=== PATIENT | male | born 1980 | race Caucasian/White ===

== ENCOUNTER 2020-06-30 11:03 | Outpatient (REF) | payer OTHER, SELFPAY | END 2020-06-30 11:04 | disposition home or self-care (01) | LOC: HO.WFDLDS 11:03 | PROVIDERS: Visit Provider Internal Medicine | DX: Z20.828 Contact with and (suspected) exposure to other viral communicable diseases (principal) | CPT/HCPCS: C9803; U0003 ==

== ENCOUNTER 2021-07-12 07:33 | Outpatient (REF) | payer OTHER, SELFPAY ==
[2021-07-12 11:24] LABS: Alanine Aminotransferase 46 U/L (0-40); Albumin Level 4.4 g/dL (3.5-5.0); Alkaline Phosphatase 77 U/L (39-117); Anion Gap 8 (12-20); Aspartate Amino Transferase 23 U/L (5-37); Bilirubin Total 0.6 mg/dL (0.0-1.0); Blood Urea Nitrogen 18 mg/dL (9-16); Calcium 8.9 mg/dL (8.4-10.2); Carbon Dioxide 30 mmol/L (22-29); Chloride 106 mmol/L (96-108); Cholesterol 184 mg/dL; Estimated Glomerular Filt Rate > 60; Glucose Fasting 108 mg/dL (60-99); HDL Cholesterol 39 mg/dL; LDL Cholesterol Calculated 108 mg/dl; Potassium 4.8 mmol/L (3.3-5.1); Sodium 139 mmol/L (135-145); Total Protein 6.9 g/dL (6.5-8.0); Triglycerides 189 mg/dL
[2021-07-12 11:44] LABS: TSH reflex Free T4 0.98 uIU/mL (0.32-4.0)
== END 2021-07-12 07:34 | disposition home or self-care (01) ==
LOC: HO.WFDLDS 07:33
PROVIDERS: Visit Provider Family Medicine
DX: Z00.00 Encounter for general adult medical examination without abnormal findings (principal); Z12.5 Encounter for screening for malignant neoplasm of prostate
CPT/HCPCS: 36415; 80053; 80061; 84153; 84443

== ENCOUNTER 2021-08-14 08:25 | Outpatient (REF) | payer OTHER, SELFPAY ==
[2021-08-14 11:49] LABS: Estimated Average Glucose 105 mg/dL; Hemoglobin A1c % 5.3 %
[2021-08-14 11:54] LABS: Alanine Aminotransferase 51 U/L (0-40); Albumin Level 4.2 g/dL (3.5-5.0); Alkaline Phosphatase 86 U/L (39-117); Anion Gap 8 (12-20); Aspartate Amino Transferase 27 U/L (5-37); Bilirubin Total 0.2 mg/dL (0.0-1.0); Blood Urea Nitrogen 15 mg/dL (9-16); Calcium 9.2 mg/dL (8.4-10.2); Carbon Dioxide 30 mmol/L (22-29); Chloride 106 mmol/L (96-108); Estimated Glomerular Filt Rate > 60; Glucose Fasting 105 mg/dL (60-99); Potassium 4.2 mmol/L (3.3-5.1); Sodium 140 mmol/L (135-145); Total Protein 6.5 g/dL (6.5-8.0)
== END 2021-08-14 08:26 | disposition home or self-care (01) ==
LOC: HO.WFDLDS 08:25
PROVIDERS: Visit Provider Family Medicine
DX: Z00.00 Encounter for general adult medical examination without abnormal findings (principal); R73.01 Impaired fasting glucose; R74.01 Elevation of levels of liver transaminase levels
CPT/HCPCS: 36415; 80053; 83036

== ENCOUNTER → 2021-10-04 08:57 | Outpatient (BNVA) | payer OTHER, SELFPAY | PROVIDERS: PCP Family Medicine; Visit Provider Urology | DX: Z01.818 Encounter for other preprocedural examination (principal); F41.8 Other specified anxiety disorders | CPT/HCPCS: 99202 ==

== ENCOUNTER 2022-01-16 | Outpatient (REF) | payer OTHER, SELFPAY | END 2022-01-16 00:01 | disposition home or self-care (01) | LOC: CF | PROVIDERS: Visit Provider Urology | DX: Z30.2 Encounter for sterilization (principal); F41.8 Other specified anxiety disorders | CPT/HCPCS: 55250 ==

== ENCOUNTER 2023-09-16 07:57 | Emergency (ER) | payer OTHER, SELFPAY ==
--- NOTE | ~2023-09-16 | XR_ITS ---
EXAMINATION: XR CHEST CLINICAL INFORMATION: Cough COMPARISON: None available. TECHNIQUE: 2 views of the chest were obtained. FINDINGS: No significant abnormality is noted involving the heart, lungs, mediastinum, bony thorax or soft tissues. XR/XR chest 2V IMPRESSION: Unremarkable chest examination.
[2023-09-16 08:10] VITALS: BP 116/70; PULSE 94; RESP 18; TEMP 37.2; O2SAT 95; BMI 30.5
[2023-09-16 08:24] LABS: MANUAL DIFF FLAG NO
[2023-09-16 08:27] LABS: Basophils Absolute Auto 0.1 X10*3/uL (0.0-0.2); Basophils Percent Auto 0.8 % (0-2); Eosinophils Percent Auto 0.5 % (0-4); Hematocrit 39.5 % (42.0-52.0); Hemoglobin 14.1 g/dl (14.0-18.0); Imm Gran Abs Auto 0.01 X10*3/uL (0.00-0.03); Imm Gran Pct Auto 0.2 % (0.0-0.4); Lymphocytes Percent Auto 16.2 % (20-40); Mean Corpuscular HGB Conc 35.7 g/dl (31.0-36.0); Mean Corpuscular Hemoglobin 30.3 pg (27.0-33.0); Mean Corpuscular Volume 84.8 fL (80.0-98.0); Mean Platelet Volume 9.3 fL (9.4-12.4); Monocytes Absolute Auto 0.7 X10*3/uL (0.1-1.2); Neutrophils Absolute Auto 4.4 x10*3/uL (2.0-8.3); Neutrophils Percent Auto 71.3 % (45-73); Platelet Count 200 X10*3/uL (160-400); Red Blood Count 4.66 X10*6/uL (4.60-5.80); White Blood Count 6.2 X10*3/uL (4.8-10.8)
[2023-09-16 08:44] LABS: Alanine Aminotransferase 43 U/L (0-40); Albumin Level 4.2 g/dL (3.5-5.0); Alkaline Phosphatase 91 U/L (39-117); Anion Gap 11 (12-20); Aspartate Amino Transferase 24 U/L (5-37); Bilirubin Total 0.3 mg/dL (0.0-1.0); Blood Urea Nitrogen 14 mg/dL (9-16); Calcium 9.1 mg/dL (8.4-10.2); Carbon Dioxide 24 mmol/L (22-29); Chloride 107 mmol/L (96-108); Estimated Glomerular Filt Rate > 60; Glucose Random 111 mg/dL (60-115); Potassium 3.8 mmol/L (3.3-5.1); Sodium 138 mmol/L (135-145); Total Protein 6.6 g/dL (6.5-8.0)
[2023-09-16 09:04] LABS: Influenza A PCR POSITIVE (Negative); Influenza B PCR NEGATIVE (Negative); Resp Syncy Virus RNA Qual PCR NEGATIVE (Negative); SARS COV2 PCR INHOUSE NEGATIVE (Negative)
--- NOTE | 2023-09-16 09:06 | ED_ITS ---
HPI - General Adult General Chief complaint: Upper Respiratory Symptoms Stated complaint: Cough Body Aches Etc Time Seen by Provider: 09/16/23 09:06 Source: patient and family (patient's ) Mode of arrival: ambulatory Limitations: no limitations History of Present Illness HPI narrative: Patient is a 42 year old assigned male at with no reported medical history presenting to the emergency department today with a cough and fever. Patient states that over the last day he has had a cough a fever. Patient denies any dizziness, lightheadedness, abdominal pain, nausea, vomiting, chills, blurry vision, double vision, loss of vision, chest pain, difficulty breathing, shortness of breath, back pain, night sweats, pain with urination, increased urinary frequency, increased urinary urgency, blood in his urine or stool, syncope or a near syncopal episode, recent trauma or falls, bowel incontinence, bladder incontinence, bowel retention, bladder retention, or any other complaints at this time. Onset (ago): day(s) (1) Severity: mild Severity scale (1-10): 3 Relieving factors: none Exacerbating factors: none Associated symptoms: cough and fever/chills Treatments prior to arrival: none Related Data Home Medications Medication Instructions Recorded Confirmed ketorolac 10 mg tablet 10 mg PO TID PRN 08/24/21 pantoprazole 40 mg tablet,delayed 40 mg PO DAILY 08/24/21 release Previous Rx's Medication Instructions Recorded acetaminophen 300 mg-codeine 30 mg 1 tab PO Q8H #7 tabs 10/04/21 tablet diazepam 2 mg tablet 2 mg PO BID PRN anxiety 7 days #2 10/04/21 tabs azithromycin 250 mg tablet See Rx Instructions PO .COMPLEX #6 10/14/22 tabs meloxicam 15 mg tablet 15 mg PO DAILY #14 tabs 10/14/22 oseltamivir 75 mg capsule (Tamiflu) 75 mg PO DAILY 5 days #5 caps 09/16/23 Allergies Allergy/AdvReac Type Severity Reaction Status Date / Time No Known Allergies Allergy Verified 10/14/22 13:58 Review of Systems 2 Constitutional: Constitutional: Reports no additional constitutional complaints, Denies chills, Reports fever(s) and Denies night sweats Eyes: Eyes: Reports no additional eye complaints, Denies blurry vision, Denies change in vision, Denies diplopia, Denies eye discharge, Denies loss of vision and Denies eye pain ENT: Denies dizziness Cardiovascular: Cardiovascular: Reports no additional cardiovascular complaints, Denies chest pain, Denies lightheadedness, Denies Loss of Consciousness and Denies dyspnea Respiratory: Respiratory: Reports no additional respiratory complaints, Reports cough and Denies dyspnea Gastrointestinal: Gastrointestinal: Reports no additional gastrointestinal complaints, Denies abdominal pain, Denies melena, Denies hematochezia, Denies change in bowel habits and Denies change in stool character Genitourinary: Genitourinary: Reports no additional male genitourinary complaints, Denies hematuria, Denies oliguria, Denies difficulty urinating, Denies dysuria, Denies urinary frequency, Denies urinary hesitancy, Denies urinary incontinence and Denies urinary urgency Musculoskeletal: Musculoskeletal: Reports no additional musculoskeletal complaints, Denies numbness and Denies tingling Neurologic: Denies dizziness, Denies loss of vision, Denies numbness and Denies tingling Psychiatric: Psychiatric: Reports no additional psychiatric complaints Endocrine: Endocrine: Reports no additional endocrine complaints Hematologic/Lymphatic: Hematologic/Lymphatic: Reports no additional hematologic/lymphatic complaints Allergic/Immunologic: Allergic/Immunologic: Reports no additional allergic/immunologic complaints PMFSH Past Medical History Attestation statement: The following information was validated with the patient. Source: old records reviewed and nursing notes reviewed Medical History Headache Testicular pain Constipation Right flank pain Screening for prostate cancer Adult general medical exam Family planning Laboratory exam ordered as part of routine general medical examination Social History Social History Housing: House Alcohol intake: current Alcohol intake frequency: holidays/special occasions only Patient Tobacco Use Status: Former Tobacco user e-Cigarette/Vaping Use: Never Used Advance Directives: No Advance Directives Information Provided: No service: Yes Current occupational status: employed Current occupational exposures/hazards: No Physical Exam ED Vital Signs: Vital Signs - 24 hr 09/16/23 08:10 Temperature 99 F Pulse Rate 94 Respiratory Rate 18 Blood Pressure 116/70 Pulse Oximetry 95 Oxygen Delivery Method Room Air BMI result Body Mass Index 30.5 Const General: cooperative, no acute distress, alert and awake Nutritional Appearance: well nourished Orientation/consciousness: patient oriented x3 Limitations: no limitations HENMT Head: Yes normal to inspection and Yes atraumatic Ears: hearing grossly normal bilaterally and external ears normal General nose exam: Normal external nose present, no nasal discharge noted and no epistaxis Face and sinus: Yes normal facial exam, No abrasion and No laceration Mouth: Normal oral and palatal mucosa present, no drooling and no muffled voice Eyes General: appearance normal, both eyes and all related structures Periorbital: periorbital findings normal Eyelids: Yes eyelids normal Conjunctivae: conjunctivae normal Pupils: Equal, round and reactive pupils present EOM: EOMs intact bilaterally Neck Neck: Yes normal visual inspection, Yes full ROM and Yes no lymphadenopathy Chest Chest palpation & inspection: normal inspection of the chest Resp Effort & Inspection: normal respiratory effort and able to speak in complete sentences Auscultation: clear to auscultation bilaterally GI Inspection: Yes normal to inspection Neuro General: patient oriented x3 and moves all extremities Cranial nerves: Yes Equal, round and reactive pupils present Cognition (Neuro): normal cognition Motor exam (neuro): 5/5 motor strength present throughout Sensory Exam: Normal double simultaneous stimulation for sensation Coordination: [id number] test normal Extrem General: Yes normal to inspection, Yes full ROM and Yes capillary refill normal Psych Appearance: grossly normal Mental Status: mental status grossly normal Affect: normal affect Attitude: cooperative Thought process: Normal thought process present Thought content: Normal thought content present Insight: Good insight present (Psych) Medical Decision Making Medical Decision Making MDM Narrative: Patient is a 42 year old assigned male at with no reported medical history presenting to the emergency department today with a cough and fever. Patient's physical exam was unremarkable. Patient's blood work was unremarkable. Patient's chest x-ray showed no acute process. Patient's COVID-19 and RSV tests were negative. Patient's influenza test was positive. I explained my physical exam findings as well as all test results to the patient and the patient's . I answered all questions asked by the patient and the patient's . I stressed the importance of the patient taking his medication as prescribed. I stressed the importance of the patient following up with his primary care provider. I stressed the importance of the patient returning to the emergency department immediately if his symptoms were to worsen or if he were to develop any dizziness, shortness of breath, difficulty breathing, chest pain, blurry vision, loss of vision, nausea, vomiting, abdominal pain, fever, chills, back pain, or any other complaints. Patient and the patient's verbalized agreement and understanding with this treatment plan and discharge. Differential Diagnosis Differential Diagnoses: The differential diagnosis associated with the presentation includes Viral illness Pneumonia Cough COVID-19 Influenza RSV Admission/Observation Consideration of admission/observation: Escalation of care including admission/observation considered Patient would have been admitted to the hospital had his work up had any findings where hospital admission was appropriate and his clinical presentation warranted hospital admission. Lab Data [facility] Lab Attestation statement: I reviewed the patient's lab results. My interpretation of these results are in the [facility] Rationale portion of this note. 09/16/23 08:19 09/16/23 08:19 Labs: Lab Results 09/16/23 Range/Units 08:19 WBC 6.2 (4.8-10.8) X10*3/uL RBC 4.66 (4.60-5.80) X10*6/uL Hgb 14.1 (14.0-18.0) g/dl Hct 39.5 L (42.0-52.0) % MCV 84.8 (80.0-98.0) fL MCH 30.3 (27.0-33.0) pg MCHC 35.7 (31.0-36.0) g/dl RDW 12.0 (11.0-16.0) % Plt Count 200 (160-400) X10*3/uL MPV 9.3 L (9.4-12.4) fL Immature Gran % (Auto) 0.2 (0.0-0.4) % Neut % (Auto) 71.3 (45-73) % Lymph % (Auto) 16.2 L (20-40) % Atkinson % (Auto) 11.0 (2-11) % Eos % (Auto) 0.5 (0-4) % Baso % (Auto) 0.8 (0-2) % Lymph # (Auto) 1.0 L (1.2-4.9) X10*3/uL Atkinson # (Auto) 0.7 (0.1-1.2) X10*3/uL Eos # (Auto) 0.0 (0.0-0.4) X10*3/uL Baso # (Auto) 0.1 (0.0-0.2) X10*3/uL Abs Immat Gran (auto) 0.01 (0.00-0.03) X10*3/uL Absolute Neuts (auto) 4.4 (2.0-8.3) x10*3/uL Absolute Nucleated RBC 0.000 (0.0-0.012) X10*3/uL Nucleated RBC % (auto) 0.0 (0.0-0.2) /100WBC Sodium 138 (135-145) mmol/L Potassium 3.8 (3.3-5.1) mmol/L Chloride 107 (96-108) mmol/L Carbon Dioxide 24 (22-29) mmol/L Anion Gap 11 L (12-20) BUN 14 (9-16) mg/dL Creatinine 0.82 (0.5-1.4) mg/dL Estim Creat Clear Calc 145.0 Estimated GFR > 60 Random Glucose 111 (60-115) mg/dL Lactic Acid 1.0 (0.5-2.0) mmol/L Calcium 9.1 (8.4-10.2) mg/dL Total Bilirubin 0.3 (0.0-1.0) mg/dL AST 24 (5-37) U/L ALT 43 H (0-40) U/L Alkaline Phosphatase 91 (39-117) U/L Total Protein 6.6 (6.5-8.0) g/dL Albumin 4.2 (3.5-5.0) g/dL Influenza Type A (PCR) POSITIVE A (Negative) Influenza Type B (PCR) NEGATIVE (Negative) RSV RNA Qual (PCR) NEGATIVE (Negative) SARS-CoV-2 RNA (RT-PCR) NEGATIVE (Negative) Independent Interpretation I performed an independent interpretation of an: Plain X-Ray Interpretation: My interpretation is in agreement with the radiologist's impression of this imaging study. - EXAMINATION: XR CHEST CLINICAL INFORMATION: Cough COMPARISON: None available. TECHNIQUE: 2 views of the chest were obtained. FINDINGS: No significant abnormality is noted involving the heart, lungs, mediastinum, bony thorax or soft tissues. XR/XR chest 2V IMPRESSION: Unremarkable chest examination. Dictated By: Fred Madison MD Signed By: Electronically signed by Fred Madison MD 09/16/23 0842 Radiology Impression Discussion of test interpretation with radiology: I have reviewed the radiologist's reading. Independent Historian Clinical information obtained from an independent historian. History obtained from or confirmed by: Spouse (patient's provided additional history and confirmed the history provided by the patient.) Prescription Management I considered prescription management with: Antiviral (patient prescribed tamiflu) Discharge Plan Discharge Clinical Impression: Influenza Patient Disposition: Home, Self-Care Instructions: Influenza (DC) Additional Instructions: Follow up with your primary care provider. Return to the emergency department immediately if your symptoms worsen or if you develop any dizziness, shortness of breath, difficulty breathing, chest pain, blurry vision, loss of vision, nausea, vomiting, abdominal pain, fever, chills, back pain, or any other complaints. Prescriptions: New oseltamivir [Tamiflu] 75 mg capsule 75 mg PO DAILY 5 Days Qty: 5 0RF No Action pantoprazole 40 mg tablet,delayed release (DR/EC) 40 mg PO DAILY ketorolac 10 mg tablet 10 mg PO TID PRN meloxicam 15 mg tablet 15 mg PO DAILY Qty: 14 0RF azithromycin 250 mg tablet See Rx Instructions PO .COMPLEX Qty: 6 0RF Rx Instructions: take 500 mg today (day 1), then 250 mg for 4 days (days 2-5) PO acetaminophen-codeine 300-30 mg tablet 1 tab PO Q8H Qty: 7 0RF diazepam 2 mg tablet 2 mg PO BID PRN (Reason: anxiety) 7 Days Qty: 2 0RF Rx Instructions: Take medication after arrival at office lidocaine (PF) 10 mg/mL (1 %) solution 2 ml Infiltration ONCE Qty: 2 0RF Referrals: Anup Weir MD [Primary Care Provider] - Stand Alone Forms: Work/School Release Interventions: ED Discharge Assessment Last Done: 09/16/23 09:28 Discharge Date/Time: 09/16/23 09:29 Print Language: Slovenian
== END 2023-09-16 09:29 | disposition home or self-care (01) ==
PROVIDERS: Physician Assistant Medical; Emergency Provider Student in an Organized Health Care Education/Training Program; PCP Family Medicine
DX: J10.1 Influenza due to other identified influenza virus with other respiratory manifestations (principal); R05.9 Cough, unspecified; M79.10 Myalgia, unspecified site; R50.9 Fever, unspecified; Z11.52 Encounter for screening for COVID-19; Z20.822 Contact with and (suspected) exposure to COVID-19; Z79.899 Other long term (current) drug therapy
CPT/HCPCS: 0241U; 36415; 71046; 80053; 83605; 85025; 87040; 99283; 99284

== ENCOUNTER 2023-09-17 11:59 | Outpatient (AMB) | payer OTHER, SELFPAY ==
[2023-09-17 12:18] VITALS: BP 112/68; PULSE 73; TEMP 36.9; O2SAT 96; BMI 30.3
--- NOTE | 2023-09-17 12:18 | A.OFFPC_ITS ---
Vital Signs 09/17/23 12:18 Height 6 ft Weight 223 lb 8 oz BMI 30.3 BP 112/68 Blood Pressure Location Lt brachial Pulse 73 Pulse Source Pulse Oximeter Temp 98.4 F Temp Source Oral Pulse Oximetry (%) 96 Oxygen Delivery Method Room Air Intake Visit Reasons: positive flu,fever, chills,cough Intake Note: Patient is here for follow up from hospital visit on Friday, with fever, chills, cough, low 02, muscle aches. He tested positive for flu. Allergies No Known Allergies Allergy (Verified 09/17/23 12:20) Tobacco use date assessed: 09/17/23 Dental Screening Dental Screen Date: 09/17/23 Did you have a dental visit in the last 12 months?: Yes Did you have a dental problem in the last 6 months where you did not have access to dental care?: No Was dental information given to patient?: Patient has dentist HPI HPI Comments History of Present Illness Details Here today for HDF Went to [facility] [place] [place] ED for Flu like sx e September 16, 2023 Work up reviewed negative CXR and Labs He reports that he is here today as his temperature was 106 degrees last night in his O2 sats were 92%. This is with taking Tylenol and Motrin. He reports that his vital signs were very similar prior to reporting to the emergency room. Records reviewed from the emergency room and show stable vital signs. Vital signs recorded today are also normal Taking tamiflu as directed, APAP and Motrin + cough, runny nose denies ear pain or sore throat PFSH Medical History Headache Testicular pain Constipation Right flank pain Screening for prostate cancer Adult general medical exam Family planning Laboratory exam ordered as part of routine general medical examination Social History Housing: House Alcohol intake: current Alcohol intake frequency: holidays/special occasions only Patient Tobacco Use Status: Former Tobacco user e-Cigarette/Vaping Use: Never Used service: Yes Current occupational status: employed Current occupational exposures/hazards: No Cognitive needs: No Hearing needs: No Vision needs: No Questionnaire Thrive Questionnaire Date Thrive assessed: 06/25/21 LISY-7 AMB Questionnaire LISY-7 Date LISY - 7 assessed: 06/25/21 Source: Developed by Drs. Cortez Valdivia, Yael Hewitt, Hipolito Rodriguez and colleagues, with an educational millie from [employer]. Review of Systems Const All systems reviewed & are unremarkable except as noted in HPI and below Physical exam (Primary Care) Vital Signs: Last Vital Signs Temp 98.4 F 09/17/23 12:18 Pulse 73 09/17/23 12:18 BP 112/68 09/17/23 12:18 Pulse Ox 96 09/17/23 12:18 Oxygen Delivery Method Room Air 09/17/23 12:18 BMI result Body Mass Index 30.3 Tobacco/Smoking Status: Tobacco use Status Tobacco use date assessed 09/17/23 09/17/23 12:26 Patient Tobacco Use Status Former Tobacco user 09/17/23 12:26 e-Cigarette/Vaping Use Never Used 09/17/23 12:26 Thrive Assessment: Date of Thrive Assessment Date Thrive assessed 06/25/21 09/17/23 12:26 Const Other: Awake alert NAD does not appear ill Sclera and conjunctiva clear bilat TM intact and clear left, cerumen and EAC right obscuring TM MMM, pharynx WNL RRR LS CTAB Assessment and Plan Assessment & Plan (1) Hospital discharge follow-up: Code(s): Z09 - Encounter for follow-up examination after completed treatment for conditions other than malignant neoplasm Plan: This note is constructed using voice recognition software. While every effort has been made to ensure accuracy in pulp beater, still errors may have been included Sometimes, these errors may affect the content or meaning of the given sentence . Total time spent caring for the patient today was 35 minutes. This includes time spent before the visit reviewing the chart, time spent during the visit, and time spent after the visit on documentation Benign exam today. I told him that I wondered if his machines at home that monitor his vital signs were defective. Educated about febrile illnesses and effects and clinical presentation of someone with a fever of 106 F would not be what I am seeing today which is a normal exam. His labs were completely benign as well as his chest x-ray. I have advised him to continue taking his Tamiflu as directed an alternate Tylenol and Motrin as needed to control body aches or fever. Supportive care. Educated on reasons to follow up or seek additional health care (2) Influenza: Code(s): J11.1 - Influenza due to unidentified influenza virus with other respiratory manifestations Patient Instructions: Influenza (flu) is an infection in the lungs and breathing passages. It is caused by the influenza virus. There are different strains, or types, of the flu virus from year to year. Unlike the common cold, the flu comes on suddenly and the symptoms can be more severe. These symptoms include a cough, congestion, fever, chills, fatigue, aches, and pains. These symptoms may last for a few weeks. Although the flu can make you feel very sick, it usually doesn't cause serious health problems. Home treatment is usually all you need for flu symptoms. But your doctor may prescribe antiviral medicine to prevent other health problems, such as pneumonia, from developing. The risk of other health problems from the flu is highest for young children (under 5), older adults (over 65), women, people with long-term health conditions, people who live in nursing homes or long-term care centres, and indigenous peoples. How can you care for yourself at home? Get plenty of rest. Drink plenty of fluids. If you have to limit fluids because of a health problem, talk with your doctor before you increase the amount of fluids you drink. Take an pevp-box-hyjlemj pain medicine if needed, such as acetaminophen (Tylenol), ibuprofen (Advil, Motrin), or naproxen (Aleve), to relieve fever, headache, and muscle aches. Read and follow all instructions on the label. No one younger than 18 should take aspirin. It has been linked to Ragini syndrome, a serious illness. Take any prescribed medicine exactly as directed. Do not smoke. Smoking can make the flu worse. If you need help quitting, talk to your doctor about stop-smoking programs and medicines. These can increase your chances of quitting for good. If the skin around your nose and lips becomes sore, put some petroleum jelly (such as Vaseline) on the area. To ease coughing: Suck on cough drops or plain, hard candy. Try an gdyh-jbz-pzhovzl cough or cold medicine. Read and follow all instructions on the label. Raise your head at night with an extra pillow. This may help you rest if coughing keeps you awake. To avoid spreading the flu Wash your hands regularly, and keep your hands away from your face. Stay home from school, work, and other public places until you are feeling better and your fever has been gone for at least 24 hours. The fever needs to have gone away on its own without the help of medicine. Ask people living with you to talk to their doctors about preventing the flu. They may get antiviral medicine to keep from getting the flu from you. To prevent the flu in the future, get the flu vaccine every fall. Encourage people living with you to get the vaccine. Cover your mouth when you cough or sneeze. If you can, cough or sneeze into the bend of your elbow, not your hands. When should you call for help? Call 911 anytime you think you may need emergency care. For example, call if: You have severe trouble breathing. You have a seizure. Call your doctor or nurse advice line now or seek immediate medical care if: You have trouble breathing. You have a fever with a stiff neck or a severe headache. You have pain or pressure in your chest or belly. You have a fever or cough that returns after getting better. You feel very sleepy, dizzy, or confused. You are not urinating. You have severe muscle pain. You have severe weakness, or you are unsteady. You have medical conditions that are getting worse Watch closely for changes in your health, and be sure to contact your doctor or nurse advice line if: You do not get better as expected. You are having a problem with your medicine. Coding Level of Care Code Est Pt Level 4 (80227) Diagnoses Hospital discharge follow-up Z09 Influenza J11.1
== END 2023-09-17 12:39 | disposition home or self-care (01) ==
PROVIDERS: PCP Family Medicine; Visit Provider Nurse Practitioner Family
DX: Z09 Encounter for follow-up examination after completed treatment for conditions other than malignant neoplasm (principal); J11.1 Influenza due to unidentified influenza virus with other respiratory manifestations
CPT/HCPCS: 99214

== ENCOUNTER 2024-01-19 10:00 | Outpatient (AMB) | payer OTHER, SELFPAY ==
--- NOTE | 2024-01-19 10:15 | AM.OFFWIN_ITS ---
Intake Vital Signs 01/19/24 10:16 Height 6 ft Weight 224 lb 6 oz BMI 30.4 BP 102/68 Blood Pressure Location Lt brachial Position Sitting Respiration 14 Pulse 92 Pulse Source Pulse Oximeter Temp 98.6 F Temp Source Oral Pulse Oximetry (%) 96 Oxygen Delivery Method Room Air Intake Visit Reasons: Constant cough Intake Note: Ongoing cough 12 and chest tightness. Patient Tobacco Use Status: Former Tobacco user Allergies No Known Allergies Allergy (Verified 01/19/24 10:40) Medication List - Last Reconciled 01/19/24 by Surekha Esparza, ADULT EDUCATION MANAGER- No Known Home Meds HPI HPI Comments History of Present Illness Details Here today with complaints of a cough that started 12 days ago. Reports that he was in his normal state of health until this cough developed. He is tried Delsym, Sudafed and other pfbu-xhl-nuvsowu medications without relief. Former smoker. He is worried about pneumonia as he has a history of this. He is also going away on vacation and wants to make sure that he is better before his trip to the beach on Friday. Denies travel, known sick exposure, asthma or COPD, hemoptysis, chest pain. AWAKE ALERT NAD SCLERA AND CONJUNCTIVA CLEAR BILAT NARES WITH CLEAR DRAINAGE, TURBINATES PALE AND EDEMATOUS, REPORTS NO SINUS TENDERNESS WITH PALPATION BILAT HOWEVER WINCING WHEN PALP LEFT FRONTAL AND MAXILLARY TM INTACT BILAT, + ERRYTHEMA AND BULGING ON LEFT MMM, PHARYNX WNL RRR LS CTAB, HACKING COUGH NOTED DURING EXAM W/O DISTRESS Plan: Tessalon, Flonase, Augmentin to treat suspected sinusitis with postnasal drip causing cough. Return to the office on Friday for re-evaluation if you are not feeling better. If feeling better okay to cancel the appointment. This note is constructed using voice recognition software. While every effort has been made to ensure accuracy in pitching coach, still errors may have been included Sometimes, these errors may affect the content or meaning of the given sentence . [facility] Medical History Headache Testicular pain Constipation Right flank pain Screening for prostate cancer Adult general medical exam Family planning Laboratory exam ordered as part of routine general medical examination Social History Housing: House Alcohol intake: current Alcohol intake frequency: holidays/special occasions only Patient Tobacco Use Status: Former Tobacco user e-Cigarette/Vaping Use: Never Used service: Yes Current occupational status: employed Current occupational exposures/hazards: No Cognitive needs: No Hearing needs: No Vision needs: No Physical Exam Vital Signs: Last Vital Signs Temp 98.6 F 01/19/24 10:16 Pulse 92 01/19/24 10:16 Resp 14 01/19/24 10:16 BP 102/68 01/19/24 10:16 Pulse Ox 96 01/19/24 10:16 Oxygen Delivery Method Room Air 01/19/24 10:16 BMI result Body Mass Index 30.4 Assessment & Plan Assessment & Plan (1) Acute bacterial sinusitis: Code(s): J01.90 - Acute sinusitis, unspecified; B96.89 - Other specified bacterial agents as the cause of diseases classified elsewhere Plan: . (2) Cough: Code(s): R05.9 - Cough, unspecified Qualifiers: Cough type: acute Qualified Code(s): R05.1 - Acute cough Plan: . (3) Post-nasal drip: Code(s): R09.82 - Postnasal drip Plan: . Medications: New benzonatate 100 mg PO TID 10 days PRN 30 caps 1RF cough amoxicillin-pot clavulanate 875-125 mg 1 tab PO BID 7 days 14 tabs 0RF fluticasone propionate 50 mcg/actuation administer into each nostril 1 spray intranasal BID 16 grams 0RF benzonatate 100 mg PO TID 10 days PRN 30 caps 1RF cough Patient Instructions: What Is It? Sinuses are air-filled spaces behind the bones of the upper face: between the eyes and behind the forehead, nose and cheeks. The lining of the sinuses are made up of cells with tiny hairs on their surfaces called cilia. Other cells in the lining produce mucus. The mucus traps germs and pollutants and the cilia push the mucus out through narrow sinus openings into the nose. When the sinuses become inflamed or infected, the mucus thickens and clogs the openings to one or more sinuses. Fluid builds up inside the sinuses causing inc reased pressure. Also bacteria can become trapped, multiply and infect the lining. This is sinusitis. Prevention There are some measures you can take to decrease your risk of developing sinusitis. If you smoke cigarettes, you should quit. The smoke can irritate nasal passageways and increase the likelihood of infection. Nasal allergies can trigger sinus infections, too. By identifying the allergen (the substance causing the allergic reaction) and avoiding it, you can help prevent sinusitis. If you have congestion from a cold or allergies, the following may help to reduce the risk of developing sinusitis: Drink lots of water. This thins nasal secretions and keeps mucous membranes moist. Use steam to soothe nasal passages. Breathe deeply while standing in a hot shower, or inhale the vapor from a basin filled with hot water while holding a towel over your head. Avoid blowing your nose with great force, which can push bacteria into the sinuses. Some doctors advise periodic home nasal washings to clear secretions. This may help prevent, and also treat, sinus infections. Treatment Many sinus infections improve without treatment. However, several medications may speed recovery and reduce the chance that an infection will become chronic. Decongestants - Congestion often triggers sinus infections, and decongestants can open the sinuses and allow them to drain. Several are available: Pseudoephedrine (Sudafed) is available without prescription, alone or in combination with other medications in multi-symptom cold and sinus remedies. Pseudoephedrine can cause insomnia, racing pulse and jitteriness. Do not use if you have high blood pressure or a heart condition. Phenylephrine (such as Sudafed PE) is an alternative syri-rlt-wypswjo oral decongestant. If you take products containing oral phenylephrine, check with the pharmacist to be certain there is no interaction with other medications you take. Oxymetazoline (Patric Frey and others) and phenylephrine (Joseph-Synephrine and others) are found in nasal sprays. They are effective and may be less likely to cause the side effects seen with pseudoephedrine. However, using a nasal decongestant for more than three days can cause worse symptoms when you stop the medication. This is called the rebound effect. Antihistamines - These medications help to relieve the symptoms of nasal allergies that lead to inflammation and infections. However, some doctors advise against using antihistamines during a sinus infection because they can cause excessive drying and slow the drainage process. Glsi-bym-ecfeuem antihistamines include diphenhydramine (Benadryl and others), chlorpheniramine (Chlor-Trimeton and others) and loratadine (Claritin). Fexofenadine (Vidhya) and cetrizine (Zyrtec) are available by prescription. Nasal steroids - Anti-inflammatory sprays such as mometasone (Nasonex) and fluticasone (Flonase), both available by prescription, reduce swelling of nasal membranes. Like antihistamines, nasal steroids can be most useful for those who have nasal allergies. Nasal steroids tend to produce less drying than antihistamines. Unlike nasal decongestants, nasal steroids can be used for prolonged periods. Saline nasal sprays - These salt-water sprays are safe to use and can provide some relief by adding moisture to the nasal passages, thinning mucus secretions and helping to flush out any bacteria that may be present. Pain relievers - Acetaminophen (Tylenol), ibuprofen (Advil, Motrin and others) or naproxen (Aleve) can be taken sinus pain. Antibiotics - Your doctor may prescribe an antibiotic if he or she suspects that a bacterial infection is causing your sinusitis. If you start taking an antibiotic, complete the entire course so that the infection is completely killed off. Not all cases of sinusitis require antibiotic treatment: Talk with your doctor about whether an antibiotic is right for you. Keep in mind that antibiotics can cause side effects, such as allergic reactions, rash and diarrhea. In addition, overusing antibiotics eventually leads to the spread of bacteria that no longer can be killed by the most commonly prescribed antibiotics. When To Call A Professional Contact a doctor if you experience facial pain along with a headache and fever, cold symptoms that last longer than seven to 10 days, or persistent green discharge from the nose. If your symptoms don't improve within a week of beginning treatment, call your doctor. Call sooner if symptoms are getting worse. If you have repeated bouts of acute sinusitis, you may have allergies or another treatable cause of sinus congestion. Ask your doctor for advice. Coding Level of Care Code Est Pt Level 3 (13669) Diagnoses Acute bacterial sinusitis J01.90; B96.89 Acute cough R05.1 Cough type: acute Post-nasal drip R09.82
[2024-01-19 10:16] VITALS: BP 102/68; PULSE 92; RESP 14; TEMP 37; O2SAT 96; BMI 30.4
== END 2024-01-19 10:51 | disposition home or self-care (01) ==
PROVIDERS: PCP Family Medicine; Visit Provider Nurse Practitioner Family
DX: J01.90 Acute sinusitis, unspecified (principal); B96.89 Other specified bacterial agents as the cause of diseases classified elsewhere; R05.1 Acute cough; R09.82 Postnasal drip
CPT/HCPCS: 99213

== ENCOUNTER 2024-01-22 10:45 | Outpatient (AMB) | payer OTHER, SELFPAY ==
--- NOTE | 2024-01-22 10:50 | AM.OFFWIN_ITS ---
Intake Vital Signs 01/22/24 10:56 Weight 223 lb 8 oz BP 122/70 Blood Pressure Location Rt brachial Position Sitting Pulse 85 Pulse Source Pulse Oximeter Temp 97.8 F Temp Source Temporal Artery Scan Pulse Oximetry (%) 96 Oxygen Delivery Method Room Air Intake Visit Reasons: F/U Cough Intake Note: patient here c/o cough wont go away. Patient Tobacco Use Status: Former Tobacco user Camp Advisor Required: No Allergies No Known Allergies Allergy (Verified 01/22/24 10:54) Medication List - Last Reconciled 01/22/24 by Surekha Esparza, FIBERGLASS MODEL MAKER- amoxicillin-pot clavulanate 875-125 mg 1 tab PO BID 7 days benzonatate 100 mg PO TID PRN 10 days benzonatate 100 mg PO TID PRN 10 days fluticasone propionate 50 mcg/actuation 1 spray intranasal BID Do you need a note to return to daycare/school/sports/work: Yes HPI HPI Comments History of Present Illness Details Here today for fu of cough. He stat es he is feeling n o better. Continu es to drink Sue m to help cough. Reports that the Tessalon did nothi ng for him. He is using the Flonase but also feels th at is doing nothin g for him. Taking the antibiotic as directed and also states this does nothing for him. He denies any new or worsening sympt oms. He remains a nxious as he is go ing on vacation on Friday. The wi tae is with him alannad lasha reports a chron ic history of recu rrent sinusitis an d sinus problems. See below for info provided at o riginal visit: >> complaints of a co ugh that started 1 2 days ago. Repor ts that he was in his normal state o f health until thi s cough developed. He is tried Dels ym, Sudafed and ot her qnqb-dyt-rkmhc er medications wit hout relief. Form er smoker. He is worried about pneu monia as he has a history of this. He is also going a way on vacation an d wants to make maynard re that he is bett er before his trip to the beach on . Denies t ravel, known sick exposure, asthma o r COPD, hemoptysis , chest pain. [place] KE ALERT NAD SCLER A AND CONJUNCTIVA CLEAR BILAT NARES WITH CLEAR DRAINAG E, TURBINATES PALE AND EDEMATOUS, RE PORTS NO SINUS TEN DERNESS WITH PALPA TION NO LONGER W/ BILAT WINCING WHE N PALP LEFT FRONTA L AND MAXILLARY T M INTACT ON LEFT W ITH MILD INJECTION , NO BIULGING LOKESH BLE TO SEE TM ON R IGHT D/T CERUMEN MMM, PHARYNX WNL RRR LS CTAB, HACKI NG COUGH NOTED DUR ING EXAM W/O DISTR ESS Plan: His physical exam is better since the initial office visit. He does still continue with cough. I still do believe that this is a postnasal cough. dc tessalon as it did not provide relief complete ab therapy cont flonase add ipratropium nasal spray and oral prednisone refer to ENT This note is constructed using voice recognition software. While every effort has been made to ensure accuracy in mobile web application developer, still errors may have been included Sometimes, these errors may affect the content or meaning of the given sentence . Total time spent caring for the patient today was 32 minutes. This includes time spent before the visit reviewing the chart, time spent during the visit, and time spent after the visit on documentation [facility] Medical History Headache Testicular pain Constipation Right flank pain Screening for prostate cancer Adult general medical exam Family planning Laboratory exam ordered as part of routine general medical examination Social History Housing: House Alcohol intake: current Alcohol intake frequency: holidays/special occasions only Patient Tobacco Use Status: Former Tobacco user e-Cigarette/Vaping Use: Never Used service: Yes Current occupational status: employed Current occupational exposures/hazards: No Cognitive needs: No Hearing needs: No Vision needs: No Physical Exam Vital Signs: Last Vital Signs Temp 97.8 F 01/22/24 10:56 Pulse 85 01/22/24 10:56 BP 122/70 01/22/24 10:56 Pulse Ox 96 01/22/24 10:56 Oxygen Delivery Method Room Air 01/22/24 10:56 Assessment & Plan Assessment & Plan (1) Chronic sinusitis: Code(s): J32.9 - Chronic sinusitis, unspecified Qualifiers: Sinusitis location: unspecified location Qualified Code(s): J32.9 - Chronic sinusitis, unspecified Plan: . (2) Post-nasal drip: Code(s): R09.82 - Postnasal drip Plan: . (3) Cough: Code(s): R05.9 - Cough, unspecified Qualifiers: Cough type: acute Qualified Code(s): R05.1 - Acute cough Plan: . Orders: Referrals Ear/Nose/Throat Referral J32.9 - Chronic sinusitis, unspecified Medications: New prednisone 50 mg PO DAILY 5 tabs 0RF 5 days ipratropium bromide administer into each nostril 2 sprays intranasal BID 30 mL 0RF Discontinued benzonatate Discontinued Reason: Patient Completed Course 100 mg PO TID 10 days PRN 30 caps 1RF cough benzonatate Discontinued Reason: Patient Completed Course 100 mg PO TID 10 days PRN 30 caps 1RF cough Coding Level of Care Code Est Pt Level 4 (53709) Diagnoses Chronic sinusitis, unspecified location J32.9 Sinusitis location: unspecified location Post-nasal drip R09.82 Acute cough R05.1 Cough type: acute
[2024-01-22 10:56] VITALS: BP 122/70; PULSE 85; TEMP 36.6; O2SAT 96
== END 2024-01-22 11:38 | disposition home or self-care (01) ==
PROVIDERS: PCP Family Medicine; Visit Provider Nurse Practitioner Family
DX: J32.9 Chronic sinusitis, unspecified (principal); R09.82 Postnasal drip; R05.1 Acute cough
CPT/HCPCS: 99214